=== PATIENT | male | born 2000 | race Caucasian/White ===

== ENCOUNTER 2023-08-24 00:56 | Emergency (ER) | payer MEDICAID ==
[2023-08-24 02:06] LABS: CORONAVIRUS COVID-19 NAA NEGATIVE (NEGATIVE); INFLUENZA A NAA NEGATIVE (NEGATIVE); INFLUENZA B NAA NEGATIVE (NEGATIVE); RESPIRATORY SYNCYTIAL VIR NAA NEGATIVE (NEGATIVE)
== END 2023-08-24 02:23 | disposition home or self-care (01) ==
LOC: JP.ED 00:56
DX: R07.89 Other chest pain (principal); F17.210 Nicotine dependence, cigarettes, uncomplicated; Z20.822 Contact with and (suspected) exposure to COVID-19
CPT/HCPCS: 0241U; 93005; 99285

== ENCOUNTER 2024-10-21 19:30 | Emergency (ER) | payer MEDICAID ==
[2024-10-21 20:05] LABS: BASOPHILS ABSOLUTE AUTO 0.03 K/uL (0.00-0.10); BASOPHILS PERCENT AUTO 0.3 % (0.1-1.3); EOSINOPHILS ABSOLUTE AUTO 0.04 K/uL (0.00-0.40); EOSINOPHILS PERCENT AUTO 0.4 % (0.0-5.4); HEMATOCRIT 44.8 % (38.4-49.7); HEMOGLOBIN 15.9 g/dL (12.9-16.9); IMMATURE GRAN ABSOLUTE AUTO 0.03 K/uL (0.00-0.23); IMMATURE GRAN PERCENT AUTO 0.3 % (0.0-0.7); LYMPHOCYTES ABSOLUTE AUTO 2.09 K/uL (0.8-3.3); LYMPHOCYTES PERCENT AUTO 20.7 % (11.4-47.7); MEAN CORPUSCULAR HEMOGLOBIN 29.8 pg (31.6-35.5); MEAN CORPUSCULAR HGB CONC 35.5 g/dL (31.6-35.5); MEAN CORPUSCULAR VOLUME 84.1 fL (81.4-99.0); MONOCYTES ABSOLUTE AUTO 0.59 K/uL (0.20-0.90); MONOCYTES PERCENT AUTO 5.9 % (3.3-12.6); NEUTROPHILS PERCENT AUTO 72.4 % (40.0-78.1); PLATELET COUNT,PLT 383 K/uL (130-375); RED BLOOD CELL COUNT 5.33 M/uL (4.14-5.76); WHITE BLOOD CELL COUNT,WBC 10.1 K/uL (3.2-11.0)
[2024-10-21 20:22] LABS: CALCIUM 9.7 mg/dL (8.5-10.1); CREATININE 1.1 mg/dL (0.8-1.3); EST CRCL DRUG DOSING (CG) 98.45 mL/min; MAGNESIUM 1.6 mg/dL (1.8-2.4); POTASSIUM,K 3.7 mmol/L (3.6-5.2)
[2024-10-21 20:23] LABS: ANION GAP 21.7 mmol/L (5.0-14.0)
[2024-10-21] MEDS: Magnesium Oxide 400 MG Tab PO ONE (20:32)
== END 2024-10-21 20:35 | disposition home or self-care (01) ==
LOC: JP.ED 19:30
DX: F41.0 Panic disorder [episodic paroxysmal anxiety] (principal); E83.42 Hypomagnesemia; F17.210 Nicotine dependence, cigarettes, uncomplicated
CPT/HCPCS: 36415; 80048; 83735; 85025; 93005; 93010; 99284; A9270-GY

== ENCOUNTER 2025-03-01 16:34 | Emergency (ER) | payer MEDICAID ==
[2025-03-01] MEDS: metroNIDAZOLE 250 MG Tab PO ONE (19:17)
[2025-03-01] MEDS: Cephalexin 250 MG Cap PO ONE (19:17)
== END 2025-03-01 19:36 | disposition home or self-care (01) ==
LOC: JP.ED 16:34
DX: L02.31 Cutaneous abscess of buttock (principal); F17.200 Nicotine dependence, unspecified, uncomplicated
CPT/HCPCS: 99283; A9270